=== PATIENT | female | born 2000 | race Caucasian/White ===

== ENCOUNTER 2023-03-20 08:49 | Outpatient (CLI) | payer BC, MEDICAID ==
[2023-03-20 09:42] LABS: BASOPHILS # (AUTO) 0.1 X10'3 (0-0.2); EOSINOPHILS # (AUTO) 0.3 X10'3 (0-0.9); EOSINOPHILS % (AUTO) 3.5 % (0-6); HEMATOCRIT 39.7 % (35.0-45.0); HEMOGLOBIN 13.2 g/dl (12.0-16.0); LYMPHOCYTES % (AUTO) 26.6 % (21-51); MEAN CORPUSCULAR HEMOGLOBIN 29.8 PG (27.0-31.0); MEAN CORPUSCULAR HGB CONC 33.2 g/dL (33.0-36.5); MEAN CORPUSCULAR VOLUME 89.7 FL (78-98); MEAN PLATELET VOLUME 9.1 FL (7.4-10.4); MONOCYTES # (AUTO) 0.4 X10'3 (0-0.9); MONOCYTES % (AUTO) 5.4 % (2-12); NEUTROPHILS # (AUTO) 4.8 X10'3 (1.8-7.7); NEUTROPHILS % (AUTO) 63.5 % (42-75); PLATELET COUNT 295 X10'3 (140-440); RED BLOOD COUNT 4.42 X10'6 (4.20-5.60); RED CELL DISTRIBUTION WIDTH 13.3 % (11.5-14.5); WHITE BLOOD COUNT 7.5 X10'3 (4.5-11.0)
[2023-03-20 10:19] LABS: ALANINE AMINOTRANSFERASE 29 U/L (12-78); ALBUMIN 3.9 G/DL (3.4-5.0); ALBUMIN/GLOBULIN RATIO 1.1 (1.1-1.5); ALKALINE PHOSPHATASE 51 IU/L (46-116); ANION GAP 7 (8-16); ASPARTATE AMINO TRANSFERASE 18 U/L (10-37); BILIRUBIN,TOTAL 0.2 MG/DL (0.1-1.0); BLOOD UREA NITROGEN 12 MG/DL (7-18); BUN/CREATININE RATIO 15.4 (10.0-20.0); CALCIUM 9.1 MG/DL (8.5-10.1); CHLORIDE 104 MMOL/L (99-107); CHOL/HDL RATIO 3.4 (0.00-4.99); CHOLESTEROL 191 MG/DL (0-200); CREATININE 0.78 MG/DL (0.40-0.90); GLUCOSE 83 MG/DL (70-104); HDL CHOLESTEROL 56 MG/DL (35-60); LDL CHOLESTEROL 112 MG/DL (50-100); POTASSIUM 3.9 MMOL/L (3.5-5.1); SODIUM 137 MMOL/L (135-145); THYROID STIMULATING HORMONE 7.77 ulU/ml (0.34-4.50); TOTAL CARBON DIOXIDE 25.6 MMOL/L (24-32); TOTAL PROTEIN 7.4 G/DL (6.4-8.2); TRIGLYCERIDES 115 MG/DL (20-135); eGFR > 90 ML/MIN
== END 2023-03-20 23:59 | disposition home or self-care (01) ==
LOC: LAB 08:49
PROVIDERS: ATTEND Registered Nurse
DX: Z00.00 Encounter for general adult medical examination without abnormal findings (principal); Z76.89 Persons encountering health services in other specified circumstances; E03.9 Hypothyroidism, unspecified; R53.83 Other fatigue; E55.9 Vitamin D deficiency, unspecified; F31.81 Bipolar II disorder; Z68.42 Body mass index [BMI] 45.0-49.9, adult
CPT/HCPCS: 36415; 80053; 80061; 80178; 82306; 82607; 82670; 82746; 84443; 85025

== ENCOUNTER 2023-05-03 09:57 | Emergency (ER) | payer BC, MEDICAID ==
[~2023-05-03] VITALS: Ht 157.5 cm; Wt 118.0 kg
[2023-05-03 11:37] VITALS: BP 141/65; PULSE 82; RESP 16; TEMP 97.9; O2SAT 99
== END 2023-05-03 11:39 | disposition home or self-care (01) ==
LOC: ER 09:58
DX: S93.692A Other sprain of left foot, initial encounter (principal); S93.492A Sprain of other ligament of left ankle, initial encounter; W18.39XA Other fall on same level, initial encounter; Y93.89 Activity, other specified; Y92.89 Other specified places as the place of occurrence of the external cause; Y99.8 Other external cause status
CPT/HCPCS: 73610; 73630; 99284; A6449

== ENCOUNTER 2025-01-06 21:26 | Emergency (ER) | payer BC, MEDICAID ==
[~2025-01-06] VITALS: Ht 157.5 cm; Wt 128.9 kg
[2025-01-06] MEDS ORDERED: CEPH-585 PO (22:45)
--- NOTE | 2025-01-06 22:45 | Physician Documentation ---
History of Present Illness ~ Chief Complaint: Leg Pain Stated Complaint: BLOOD CLOT R LEG Time Seen by MD: 22:27 [facility] This is a 24-year-old female who presents when an area of pain and redness to her left medial calf onset earlier this morning and worsening through the day. Patient reports no fevers, chills, or other systemic symptoms. Patient reports no other acute symptoms or concerns. Tetanus witin 5 years: No Medication Reconciliation Scheduled Cephalexin*Monohydrate* (Keflex*), 1 CAP PO QID Past Medical History Past Medical History: No Pertinent History Review of Systems ROS As stated above in the HPI, otherwise all systems are reviewed and negative. Physical Exam Vital Signs: Temperature: 97.7, Source: Temporal, Heart Rate: 85, Respiratory Rate: 16, BP: 152/83, Pulse Oximetry: 98, Weight: 128.900 Oxygen Flow Rate: 0 Physical Exam VITALS: Reviewed and as above. GENERAL: Alert, nontoxic appearing, no apparent distress. RESPIRATORY: No increased work of breathing, no respiratory distress, speaking in full clear sentences SKIN: Approximately 5 cm round area of mild erythema and induration tender to palpation to right medial calf, no posterior calf tenderness Progress Results/Orders Results/Orders Completed Orders - AYO HARDIN Ibuprofen Tablet (Motrin Tablet) (01/06/25 22:40) Cephalexin Capsule (Keflex Capsule) (01/06/25 22:40) Medications Received in ER Medications (Trade) Dose Ordered Sig/Roas Route PRN Reason Start Time Stop Time Status Last Admin Dose Admin (Motrin tablet) 400 mg ONCE ONCE PO 01/06/25 22:40 01/06/25 22:41 DC 01/06/25 22:53 400 MG (Keflex capsule) 500 mg ONCE ONCE PO 01/06/25 22:40 01/06/25 22:41 DC 01/06/25 22:53 500 MG Vital Signs 01/06/25 01/06/25 21:33 22:59 Temp 97.7 98.6 Pulse 85 82 Resp 16 18 B/P (MAP) 152/83 150/80 Pulse Ox 98 99 O2 Flow Rate 0 Medical Decision Making Additional information obtaine: N/A Findings 24-year-old female presented with a small area of mild induration and erythema that is tender to palpation to her right medial calf, it is reassuring patient reports no fever or chills or other systemic symptoms. Patient is otherwise well-appearing with no other acute symptoms or concerns, physical exam is consistent with likely cellulitis. Patient is appropriate for outpatient follow up and we will be treated with course of oral antibiotics. Provided home care instructions return to care precautions, and follow up instructions which he verbalized understanding of. General Diff Dx:Considerations: Include: Abrasion, Fracture, Laceration, Neur ovascular injury, Other (Abscess) Knee Diff Dx:Considerations: Unlikely: Abrasion, Arthritis, Contusion, DJD, Fracture-femur, Fracture-fibula, Fracture-patella, Fracture-tibia, Gout, Hematoma, Laceration, Meniscus injury, Neurovascular injury, Open fracture, Rheumatoid arthritis, Septic, Sprain, Sprain-MCL, Sprain-LCL, Sprain-ACL, Sprain-PCL, Other Ankle Diff Dx:Considerations: Unlikely: Abrasion, Arthritis, Contusion, DJD, Fracture-metatarsal, Fracture-fibula, Fracture-tarsal, Fracture-tibia, Gout, Hematoma, Laceration, Malunion, Neurovascular injury, Nonunion, Open fracture, Osteomyelitis, Rheumatoid arthritis, Sprain, Septic, Ulcer, Other Foot Diff Dx:Considerations: Unlikely: Abrasion, Arthritis, Cellulitis, Contusion, Dislocation, DJD, Fracture-metatarsal, Fracture-phalynx, Fracture- tarsal, Gout, Hematoma, Ingrown toenail, Laceration, Malunion, Neurovascular injury, Open fracture, Paronychia, Puncture, Rheumatoid, Sprain, Septic, Subungual hematoma, Ulcer, Other Toe Diff Dx:Considerations: Unlikely: Abrasion, Cellulitis, Contusion, Dislocation, Felon, Fracture, Hematoma, Laceration, Neurovascular injury, Open fracture, Paronychia, Subungual hematoma, Other Departure Time of Disposition: 22:44 Disposition: 01 HOME / SELF CARE / HOMELESS Impression: Primary Impression: Cellulitis Qualified Codes: L03.115 - Cellulitis of right lower limb Condition: Improved Discharge Instructions: Cellulitis, Adult Additional Instructions: Please take the antibiotics as prescribed. You may use ibuprofen and or Tylenol as needed for pain as directed by [id number] packaging. Please follow up with your primary care provider in the next few days. Please return to the emergency department for any new or worsening concerning symptoms. Referrals: NO PRIMARY CARE PROVIDER (PCP) Prescriptions Cephalexin*Monohydrate* (Keflex*) 500 Mg Capsule 1 CAP PO QID for 7 Days, #28 CAP Prov: AYO HARDIN 01/06/25 Education Educated: Patient Educated regarding: diagnosis, treatment, prognosis, need for follow up Signature Scribe Signature: No scribe Attestation: The note accurately reflects work and decisions made by me.ESDRAS Angulo 01/07/25 00:26 AYO HARDIN Jan 06, 2025 22:45
[2025-01-06] MEDS: ibuprofen tablet 400 MG TABLET PO ONE (22:53)
[2025-01-06 22:59] VITALS: BP 150/80; PULSE 82; RESP 18; TEMP 98.6; O2SAT 99
== END 2025-01-06 23:01 | disposition home or self-care (01) ==
LOC: ER 21:26
DX: L03.115 Cellulitis of right lower limb (principal)
CPT/HCPCS: 99283